=== PATIENT | female | born 1970 | race African-American/Black ===

== ENCOUNTER 2021-10-02 15:50 | Inpatient (IN) | payer MEDICAID ==
[~2021-10-02] VITALS: Ht 149.9 cm; Wt 143.3 kg
--- NOTE | 2021-10-02 16:41 | NUR ---
BIB RA 80 FROM HOME,BLOOD PRESSURE WAS 201/128,ASYMPTOMATIC SITTING IN A COUCH UPON EMS ARRIVAL. DENIES PAIN. IN ROOM AIR AND DENIES SOB. RESPIRATION REGULAR AND UNLABORED. WILL CONTINUE TO MONITOR THE PATIENT.
[2021-10-02 16:56] LABS: BILIRUBIN,URINE NEGATIVE (NEGATIVE); COLOR,URINE YELLOW (YELLOW); LEUKOCYTE ESTERASE ,URINE NEGATIVE (NEGATIVE); NITRITE, URINE NEGATIVE (NEGATIVE); PROTEIN,URINE 100 mg/dl (NEGATIVE); UGLUCOSE NEGATIVE (NEGATIVE); UROBILINOGEN,URINE 0.2 EU/dL (0.2)
[2021-10-02 17:05] LABS: BACTERIA,URINE None seen /HPF (None Seen); SQUAMOUS EPITHELIAL CELL,UR 0-2 /HPF (None Seen); WBC,URINE 0-2 /HPF (0-3)
--- NOTE | 2021-10-02 17:24 | NUR ---
LU KINNEY DONE AND SENT TO THE LAB
[2021-10-02] MEDS ORDERED: FUROSEMIDE 40 MG/4 ML VIAL IV ONE (17:30)
[2021-10-02] MEDS ORDERED: FUROSEMIDE 40 MG/4 ML VIAL ONE (17:39)
--- NOTE | 2021-10-02 17:43 | NUR ---
X-RAY TECH AT THE BEDSIDE
[2021-10-02 17:58] LABS: BASOPHILS # (AUTO) 0.1 K/uL (0.0-0.2); BASOPHILS % (AUTO) 0.9 % (0.0-2.0); EOSINOPHILS % (AUTO) 0.5 % (0.0-6.0); HEMATOCRIT 44 % (33-45); HEMOGLOBIN 14.4 g/dL (11.5-14.8); LYMPHOCYTES # (AUTO) 1.2 K/uL (0.8-4.8); LYMPHOCYTES % (AUTO) 12.9 % (20.0-44.0); MEAN CORPUSCULAR HGB CONC 33 g/dl (31.0-36.0); MEAN CORPUSCULAR VOLUME 91 fL (82-100); MONOCYTES # (AUTO) 0.8 K/uL (0.1-1.30); MONOCYTES % (AUTO) 8.9 % (2.0-12.0); NEUTROPHILS # (AUTO) 7.3 K/uL (1.8-8.9); NEUTROPHILS % (AUTO) 76.8 % (43.0-81.0); PLATELET COUNT (AUTO) 273 K/uL (150-450); RED BLOOD CELL COUNT(AUTO) 4.83 MIL/uL (4.0-5.2); WHITE BLOOD COUNT (AUTO) 9.5 K/uL (4.3-11.0)
[2021-10-02] MEDS ORDERED: CHOL100062 PO (17:59)
[2021-10-02] MEDS ORDERED: FURO-145 PO (17:59)
[2021-10-02] MEDS ORDERED: THIA100T74 PO (17:59)
[2021-10-02] MEDS ORDERED: OLME20TA13 PO (17:59)
[2021-10-02] MEDS ORDERED: METO25TA3 PO (17:59)
[2021-10-02] MEDS ORDERED: FERR325T23 PO (17:59)
[2021-10-02] MEDS ORDERED: ALBU8.5H8 IH (18:00)
[2021-10-02 18:14] LABS: CALCIUM, SERUM 8.2 mg/dL (8.5-10.1); CARBON DIOXIDE 30 mmol/L (21-32); CHLORIDE 100 mmol/L (98-107); CREATININE 1.1 mg/dL (0.6-1.3); GLUCOSE 130 mg/dL (74-106); POTASSIUM 3.2 mmol/L (3.5-5.1); SODIUM SERUM 137 mmol/L (136-145); UREA NITROGEN, BLOOD 15 mg/dL (7-18)
[2021-10-02 18:25] LABS: ALANINE AMINOTRANSFERASE 47 U/L (12-78); ALBUMIN 3.3 g/dL (3.4-5.0); ALKALINE PHOSPHATASE 72 U/L (46-116); ASPARTATE AMINOTRANSFERASE 34 U/L (15-37); BILIRUBIN,DIRECT 0.2 mg/dL (0.0-0.2); BILIRUBIN,TOTAL 0.8 mg/dL (0.2-1.0)
--- NOTE | 2021-10-02 19:40 | NUR ---
[facility] CALLED CERTIFIED MASTER SAFECRACKER PAGED.
[2021-10-02] MEDS ORDERED: ACETAMINOPHEN 325 MG TABLET PO PRN (21:00)
[2021-10-02] MEDS ORDERED: LABETALOL 20 MG/4 ML VIAL IV PRN (21:00)
[2021-10-02] MEDS: ENOXAPARIN SODIUM 40 MG/0.4 ML DISP.SYRIN SQ SCH (21:00)
[2021-10-02] MEDS ORDERED: ONDANSETRON HCL/PF 4 MG/2 ML VIAL IVP PRN (21:00)
--- NOTE | 2021-10-02 21:00 | NUR ---
MIGUEL HELD D/T NO COAGULATION LABS BEING DONE
--- NOTE | 2021-10-02 21:15 | NUR ---
PT TRANSITIONED JULIEN PX CALLED TO VERIFY ORDERS
[2021-10-02] MEDS ORDERED: hydrALAZINE HCL IV 20 MG VIAL ONE (21:20)
[2021-10-02] MEDS ORDERED: ENOXAPARIN SODIUM 40 MG/0.4 ML DISP.SYRIN SQ ONE (21:24)
[2021-10-02] MEDS: hydrALAZINE HCL IV 20 MG VIAL IV PRN (21:30)
[2021-10-02] MEDS ORDERED: ALBUTEROL FS 2.5 MG/3 ML VIAL.NEB NEB PRN (21:30)
--- NOTE | 2021-10-02 21:36 | NUR ---
PLACE PT ON 2L O2 FOR COMFORT. PT SATURATING 97%
[2021-10-02] MEDS ORDERED: LABETALOL HCL IV 100MG VIAL ONE (22:56)
[2021-10-03] MEDS ORDERED: MORPHINE SULFATE INJ 2 MG/ML DISP.SYRIN ONE (03:50)
[2021-10-03] MEDS: MORPHINE SULFATE INJ 2 MG/ML DISP.SYRIN IV PRN ×3 (03:50→18:46)
--- NOTE | 2021-10-03 04:41 | NUR ---
LAB AT BEDSIDE
[2021-10-03 04:58] LABS: BASOPHILS # (AUTO) 0.1 K/uL (0.0-0.2); BASOPHILS % (AUTO) 1.1 % (0.0-2.0); EOSINOPHILS % (AUTO) 0.4 % (0.0-6.0); HEMATOCRIT 43 % (33-45); HEMOGLOBIN 14.6 g/dL (11.5-14.8); LYMPHOCYTES # (AUTO) 1.1 K/uL (0.8-4.8); MEAN CORPUSCULAR HGB CONC 34 g/dl (31.0-36.0); MEAN CORPUSCULAR VOLUME 90 fL (82-100); MONOCYTES # (AUTO) 0.9 K/uL (0.1-1.30); MONOCYTES % (AUTO) 7.5 % (2.0-12.0); NEUTROPHILS # (AUTO) 10.3 K/uL (1.8-8.9); PLATELET COUNT (AUTO) 273 K/uL (150-450); RED BLOOD CELL COUNT(AUTO) 4.79 MIL/uL (4.0-5.2); WHITE BLOOD COUNT (AUTO) 12.5 K/uL (4.3-11.0)
[2021-10-03 05:14] LABS: ALBUMIN 3.5 g/dL (3.4-5.0); CALCIUM, SERUM 8.5 mg/dL (8.5-10.1); CREATININE 1.1 mg/dL (0.6-1.3); MAGNESIUM 1.5 mg/dL (1.8-2.4); PHOSPHORUS 3.8 mg/dL (2.5-4.9); POTASSIUM 3.2 mmol/L (3.5-5.1); TOTAL PROTEIN, SERUM 7.7 g/dL (6.4-8.2)
--- NOTE | 2021-10-03 07:20 | NUR ---
GAVE REPORT TO EDILBERTO MARKS FOR MIGUEL
[2021-10-03] MEDS ORDERED: FUROSEMIDE 20 MG/2 ML VIAL ONE (08:36)
[2021-10-03] MEDS: FERROUS SULFATE (325 MG) 325 MG/TAB TABLET PO SCH ×2 (08:44→10:00)
--- NOTE | 2021-10-03 08:44 | NUR ---
CALLED [facility] FOR REPORT RN NOT AVAILABLE. WILL CALL BACK IN 5 MINS.
[2021-10-03] MEDS: FUROSEMIDE 20 MG/2 ML VIAL IV SCH ×2 (08:45→17:47)
--- NOTE | 2021-10-03 09:00 | NUR ---
BEDSIDE REPORT GIVEN TO MALCOLM CASANOVA FOR MIGUEL
--- NOTE | 2021-10-03 09:15 | NUR ---
RN NOTE- REPORT GIVEN. PT COMFORTABLE. ADMISSION IN PROGRESS
--- NOTE | 2021-10-03 09:15 | NUR ---
GARNETT ROOM WORKER NOTE- 51 Y/O FEMALE PT ADMITTED W HYPERTENSION. PT AT HOME W ELEVATED BP, DIZZINESS, AND GENERAL ILL FEELING. VS ON ADMIT - BP- 165/93, HR- 100 , RR- 18, T- 98.4, SATS 98% 2LPM VIA NC. LUNGS CLEAR TO AUSCULTATION. AMBULATORY, SKIN INTACT. PT OBESE AND DOES EXPERIENCE SOB W EXERTION. PO INTAKE GOOD, SOME GENERAL DISCOMFORT AND PAIN PRESENT. ORDERS RECEIVED AND CARRIED OUT. MONITOR PLACED ON PT. TELE SR AT 100/M. CALM INTERACTIVE COMFORTABLE. SIDE RAILS UP, BED LOCKED, CALL LIGHT CLOSE. 20 G IV SALINE LOCK TO LT HAND. PATENT. MONITOR / ASSIST
[2021-10-03] MEDS: THIAMINE HCL 100 MG TABLET PO SCH (10:00)
[2021-10-03] MEDS: POTASSIUM CHLORIDE 20 MEQ TAB.PRT.SR PO SCH (10:00)
[2021-10-03] MEDS: LOSARTAN POTASSIUM 50 MG TABLET PO SCH (10:01)
[2021-10-03] MEDS: CHOLECALCIFEROL 1,000 UNIT TABLET (VIT D3) PO SCH (10:01)
[2021-10-03] MEDS: METOPROLOL SUCCINATE 25 MG TAB.SR.24H PO SCH (10:02)
[2021-10-03] MEDS ORDERED: MAGNESIUM OXIDE 400 MG TABLET PO ONE (12:00)
[2021-10-03 15:58] VITALS: BP 165/99
[2021-10-03] MEDS: SPIRONOLACTONE 25 MG TABLET PO SCH (17:49)
--- NOTE | 2021-10-03 18:31 | NUR ---
RN CLOSING NOTE- PT AOX4, BP- PT STILL HYPERTENSIVE. LASIX AND ALDACTONE ADMINISTERED. PO INTAKE GOOD. PT COMFORTABLE . NEEDS ATTENDED. SIDE RAILS UP, BED LOCKED , CALL LIGHT IN REACH . MONITOR- ASSIST
--- NOTE | 2021-10-03 19:25 | NUR ---
RN OPENING NOTE PT AWAKE IN BED, A/OX4, ABLE TO VERBALIZE NEEDS. NO C/O PAIN AT THIS TIME. IV SITE: L-HAND #20G INTACT/PATENT/FLUSHES WELL. TELE MONITOR READING SR WITH BBBs, HR 98. PT IN NO ACUTE DISTRESS. SAFETY MEASURES IN PLACE, BED IN LOWEST LOCKED POSITION, S/R UPX2, CALL LIGHT WITHIN REACH. WILL CONT TO MONITOR.
[2021-10-03 20:00] VITALS: BP 140/96
[2021-10-03] MEDS: ENOXAPARIN SODIUM 40 MG/0.4 ML DISP.SYRIN SQ SCH (20:25)
[2021-10-04] MEDS: MORPHINE SULFATE INJ 2 MG/ML DISP.SYRIN IV PRN ×4 (01:35→09:55)
--- NOTE | 2021-10-04 01:40 | NUR ---
INSTRUMENT SETTER COVERING RN NOTE PATIENT C/O 06/07 "GENERALIZED PAIN". GIVEN MORPHINE 2 MG AT THIS TIME. WILL LET RN KNOW TO REASSESS.
--- NOTE | 2021-10-04 04:05 | NUR ---
RN NOTE BP 161/91, HR 110. WILL ADMINISTER PRN LABETALOL 10MG IV ORDERED. PT IN NO ACUTE DISTRESS. WILL CONT TO MONITOR.
[2021-10-04] MEDS ORDERED: LABETALOL HCL IV 100MG VIAL IV PRN (04:30)
--- NOTE | 2021-10-04 06:55 | NUR ---
TELLER CLOSING NOTE PT RESTING IN BED, EASILY AROUSABLE TO STIMULI. DENIES PAIN AT THIS TIME. IV SITE REINSERTED TO R-FA #22G AND PRUDENCE WELL. REMOVED L-HAND IV SITE D/T PT DISCOMFORT AND PAIN TO SITE. PT PRUDENCE. WELL. TELE MONITOR READING SR, HR 64, WITH BBBs, PACs, PVCs. PT IN NO ACUTE DISTRESS. SAFETY MEASURES MAINTAINED. ALL NEEDS ATTENDED TO.
[2021-10-04 07:09] LABS: BASOPHILS # (AUTO) 0.1 K/uL (0.0-0.2); EOSINOPHILS % (AUTO) 0.9 % (0.0-6.0); HEMATOCRIT 42 % (33-45); HEMOGLOBIN 13.8 g/dL (11.5-14.8); LYMPHOCYTES # (AUTO) 1.4 K/uL (0.8-4.8); MEAN CORPUSCULAR HGB CONC 33 g/dl (31.0-36.0); MEAN CORPUSCULAR VOLUME 91 fL (82-100); MONOCYTES # (AUTO) 1.3 K/uL (0.1-1.30); NEUTROPHILS # (AUTO) 4.9 K/uL (1.8-8.9); NEUTROPHILS % (AUTO) 63.1 % (43.0-81.0); PLATELET COUNT (AUTO) 247 K/uL (150-450); RED BLOOD CELL COUNT(AUTO) 4.59 MIL/uL (4.0-5.2); WHITE BLOOD COUNT (AUTO) 7.7 K/uL (4.3-11.0)
[2021-10-04 07:30] LABS: CALCIUM, SERUM 8.7 mg/dL (8.5-10.1); CREATININE 1.4 mg/dL (0.6-1.3); MAGNESIUM 1.6 mg/dL (1.8-2.4); PHOSPHORUS 4.6 mg/dL (2.5-4.9)
[2021-10-04 08:12] VITALS: BP 159/98
[2021-10-04] MEDS: FUROSEMIDE 20 MG/2 ML VIAL IV SCH ×2 (08:33→16:46)
[2021-10-04] MEDS: POTASSIUM CHLORIDE 20 MEQ TAB.PRT.SR PO SCH (08:33)
[2021-10-04] MEDS: LOSARTAN POTASSIUM 50 MG TABLET PO SCH (08:33)
[2021-10-04] MEDS: CHOLECALCIFEROL 1,000 UNIT TABLET (VIT D3) PO SCH (08:33)
[2021-10-04] MEDS: SPIRONOLACTONE 25 MG TABLET PO SCH (08:34)
[2021-10-04] MEDS: METOPROLOL SUCCINATE 25 MG TAB.SR.24H PO SCH (08:34)
[2021-10-04] MEDS: THIAMINE HCL 100 MG TABLET PO SCH (08:36)
[2021-10-04] MEDS: FERROUS SULFATE (325 MG) 325 MG/TAB TABLET PO SCH (10:21)
[2021-10-04] MEDS: Magnesium 1GM/D5W 100ML PREMIX 100 ML IV SCH ×2 (10:42→11:39)
[2021-10-04 12:41] LABS: LYMPHOCYTES % (MANUAL) 21 % (16-48); MONOCYTES % (MANUAL) 13 % (0-11.0); NEUTROPHILS % (MANUAL) 65 (42-76)
[2021-10-04 12:42] LABS: EOSINOPHILS % (MANUAL) 1 % (0-4)
[2021-10-04] MEDS: hydrALAZINE HCL 25 MG TABLET PO SCH ×2 (14:00→21:02)
[2021-10-04] MEDS: hydrALAZINE HCL IV 20 MG VIAL IV PRN (15:35)
[2021-10-04 16:00] VITALS: BP 143/85
--- NOTE | 2021-10-04 19:42 | NUR ---
RN NOTE PATIENT ALERT AND ORIENTED X4, SITTING IN UP IN BED. VISITOR AT BEDSIDE. ON O2 2L VIA NASAL CANNULA, REMOVES CANNULA ON HER OWN AT TIMES. DENIES ANY PAIN AT THIS TIME. IV ACCESS ON RIGHT FOREARM #22, PATENT AND INTACT. BED LOCKED AND IN LOWEST POSITION. CALL LIGHT WITHIN REACH. ALL NEEDS ANTICIPATED.
[2021-10-04 20:00] VITALS: BP 160/89
[2021-10-04] MEDS: ENOXAPARIN SODIUM 40 MG/0.4 ML DISP.SYRIN SQ SCH (21:03)
--- NOTE | 2021-10-04 21:35 | NUR ---
PATIENT COMPLAINING OF SINUS PRESSURE/CONGESTION. ABLE TO EXPECTORATE YELLOW TO WHITE SPUTUM. ALSO HAS PAIN LEFT AND RIGHT SIDE OF FACE AND EAR. REQUESTING FOR PRN OR ATB. NOTIFIED GILLIAN ZARAGOZA WITH NEW ORDERS FOR CXR NOTED.
--- NOTE | 2021-10-04 22:30 | NUR ---
NOTIFIED PATIENT REGARDING ABOUT CXR, AND REFUSING CXR AT THIS TIME. ALSO OFFERRED BREATHING TX PRN AND REFUSING TX AT THIS TIME. CONTINUES ON O2 2L VIA NASAL CANNULA, HUMIDIFIER APPLIED FOR COMFORT. NO S/S OF DISTRESS.
[2021-10-05] VITALS: BP 157/94
[2021-10-05] MEDS: MORPHINE SULFATE INJ 2 MG/ML DISP.SYRIN IV PRN ×3 (00:30→10:24)
--- NOTE | 2021-10-05 00:30 | NUR ---
PATIENT COMPLAINING OF 8/10 GENERALIZED PAIN AND IS REQUESTING FOR MORPHINE. ADMINISTERED MORPHINE 2MG PRN ORDERED.
--- NOTE | 2021-10-05 02:35 | NUR ---
PATIENT IS NOW REQUESTING FOR CXR AT THIS TIME. ORDERS FROM GILLIAN ZARAGOZA NOTED AND CARRIED OUT. OFFERED HOT TEA AT THIS TIME.
[2021-10-05 04:00] VITALS: BP 160/91
[2021-10-05] MEDS: hydrALAZINE HCL 25 MG TABLET PO SCH ×2 (05:02→12:20)
[2021-10-05 06:45] LABS: BASOPHILS # (AUTO) 0.1 K/uL (0.0-0.2); BASOPHILS % (AUTO) 1.2 % (0.0-2.0); EOSINOPHILS % (AUTO) 2.6 % (0.0-6.0); HEMATOCRIT 42 % (33-45); LYMPHOCYTES # (AUTO) 1.8 K/uL (0.8-4.8); LYMPHOCYTES % (AUTO) 27.1 % (20.0-44.0); MEAN CORPUSCULAR HGB CONC 33 g/dl (31.0-36.0); MEAN CORPUSCULAR VOLUME 92 fL (82-100); MONOCYTES # (AUTO) 0.9 K/uL (0.1-1.30); MONOCYTES % (AUTO) 13.4 % (2.0-12.0); NEUTROPHILS # (AUTO) 3.6 K/uL (1.8-8.9); NEUTROPHILS % (AUTO) 55.7 % (43.0-81.0); PLATELET COUNT (AUTO) 281 K/uL (150-450); RED BLOOD CELL COUNT(AUTO) 4.61 MIL/uL (4.0-5.2); WHITE BLOOD COUNT (AUTO) 6.5 K/uL (4.3-11.0)
[2021-10-05 06:52] LABS: ALBUMIN 2.9 g/dL (3.4-5.0); BILIRUBIN,TOTAL 0.5 mg/dL (0.2-1.0); CALCIUM, SERUM 8.4 mg/dL (8.5-10.1); CREATININE 1.2 mg/dL (0.6-1.3); MAGNESIUM 1.9 mg/dL (1.8-2.4); PHOSPHORUS 4.6 mg/dL (2.5-4.9); POTASSIUM 3.8 mmol/L (3.5-5.1); TOTAL PROTEIN, SERUM 6.9 g/dL (6.4-8.2)
--- NOTE | 2021-10-05 06:55 | NUR ---
RN NOTE PATIENT RESTING IN BED. ON O2 2L VIA NASAL CANNULA, NO S/S OF DISTRESS. DENIES ANY PAIN AT THIS TIME, PAIN RELIEVED THROUGH MORPHINE PRN. IV ACCESS ON RIGHT FOREARM #22, PATENT AND INTACT. ALL NEEDS ATTENDED PROMPTLY. BED LOCKED AND IN LOWEST POSITION. CALL LIGHT WITHIN REACH. WILL ENDORSE TO AM SHIFT.
--- NOTE | 2021-10-05 07:21 | NUR ---
RN NOTES PATIENT RESTING IN BED, EYES CLOSED, ABLE TO BE AWAKENED. A/O X4, ABLE TO MAKE NEEDS KNOWN. ON O2 2L VIA NASAL CANNULA, NO S/S OF DISTRESS, BREATHING EVEN AND UNLABORED. IV ACCESS ON RIGHT FOREARM #22, PATENT AND INTACT. ON HOOKMAN, NO CARDIAC DISTRESS NOTED. SAFETY MEASURES IN PLACE: BED LOCKED AND IN LOWEST POSITION, SR UP X2, CALL LIGHT WITHIN REACH. WILL CONTINUE TO MONITOR.
[2021-10-05 08:00] VITALS: BP 154/99
[2021-10-05] MEDS: LOSARTAN POTASSIUM 50 MG TABLET PO SCH (08:46)
[2021-10-05] MEDS: METOPROLOL SUCCINATE 25 MG TAB.SR.24H PO SCH (08:47)
[2021-10-05] MEDS: POTASSIUM CHLORIDE 20 MEQ TAB.PRT.SR PO SCH (08:47)
[2021-10-05] MEDS: THIAMINE HCL 100 MG TABLET PO SCH (08:47)
[2021-10-05] MEDS: SPIRONOLACTONE 25 MG TABLET PO SCH (08:47)
[2021-10-05] MEDS: FERROUS SULFATE (325 MG) 325 MG/TAB TABLET PO SCH (08:47)
[2021-10-05] MEDS: CHOLECALCIFEROL 1,000 UNIT TABLET (VIT D3) PO SCH (08:47)
[2021-10-05] MEDS: FUROSEMIDE 20 MG/2 ML VIAL IV SCH (08:48)
[2021-10-05] MEDS ORDERED: SPIR25TA6 PO (11:24)
--- NOTE | 2021-10-05 11:58 | NUR ---
RN NOTES PATIENT SEEN BY DR. CHAWLA TODAY; OK FOR DISCHARGE TO HOME. WILL CHECK O2 SAT WHILE AMBULATING WHEN PATIENT IS READY.
[2021-10-05 12:00] VITALS: BP 145/93
[2021-10-05 12:20] VITALS: BP 145/93
--- NOTE | 2021-10-05 13:18 | NUR ---
RN NOTES PATIENT ABLE TO AMBULATE W/O O2; O2 SAT IN THE HIGH 80'S TO LOW 90'S, NO SOB NOR DIZZINESS NOTED.
[2021-10-05] MEDS ORDERED: hydrALAZINE HCL 25 MG TABLET PO SCH (14:30)
--- NOTE | 2021-10-05 14:51 | NUR ---
RN NOTES DISCHARGE INSTRUCTION AND EDUCATION PROVIDED TO PATIENT. DISCHARGE FORM AND BELONGINGS LIST FORM SIGNED BY PATIENT AND ALL BELONGINGS ACCOUNTED FOR. NAME ARMBAND AND IV LINE REMOVED. NO SKIN ISSUES NOTED. ACCOMPANIED TO THE LOBBY BY ME VIA WHEELCHAIR AND PICKED UP BY VIA PRIVATE CAR. CHARGE NURSE AND MD AWARE OF DISCHARGE.
== END 2021-10-05 15:01 | disposition home or self-care (01) | DRG 194 ==
LOC: ER 15:52 → TRANSITION 21:17 → TELE 10-03 08:49
PROVIDERS: ADMIT Internal Medicine
DX: I11.0 Hypertensive heart disease with heart failure (principal); Z68.44 Body mass index [BMI] 60.0-69.9, adult; E87.8 Other disorders of electrolyte and fluid balance, not elsewhere classified; Z99.81 Dependence on supplemental oxygen; E87.6 Hypokalemia; I50.23 Acute on chronic systolic (congestive) heart failure; Z86.16 Personal history of COVID-19; Z87.01 Personal history of pneumonia (recurrent); E66.01 Morbid (severe) obesity due to excess calories; G47.33 Obstructive sleep apnea (adult) (pediatric); Z20.822 Contact with and (suspected) exposure to COVID-19; Z79.51 Long term (current) use of inhaled steroids; Z79.899 Other long term (current) drug therapy; R09.02 Hypoxemia; Z91.14 Patient's other noncompliance with medication regimen
CPT/HCPCS: 36415; 71045-TC; 80048-TC; 80053-TC; 80076-TC; 81001; 83735-TC; 83880; 84100-TC; 84484-TC; 85025-TC; 87081-TC; 93307-TC; C9803; G0378; J0360; J1650; J1940; J2270; J3475; J3490; J7050